=== PATIENT | male | born 1945 | race Caucasian/White ===

== ENCOUNTER 2017-03-23 05:16 | Day surgery (SDC) | payer MEDICARE ==
[2017-03-22 08:42] LABS: HEMATOCRIT 42.9 % (42.0-54.0); HEMOGLOBIN 14.1 g/dL (13.5-17.5); MCH 31.1 pg (26.0-34.0); MCHC 32.9 g/dL (31.0-37.0); MCV 94.5 fL (80.0-100.0); MEAN PLATELET VOLUME 9.3 fL (7.4-10.4); RBC 4.54 10x6/uL (4.20-6.10); RDW 12.5 % (11.5-14.5); WBC 5.5 10x3/uL (4.8-10.8)
[~2017-03-23] VITALS: Ht 185.4 cm; Wt 106.1 kg
--- NOTE | ~2017-03-23 | OP ---
PATIENT NAME: MONIQUE HARPER MEDICAL RECORD: [id number] :46 LOCATION:D.OPS ADMISSION DATE: SURGEON: BEBO WHITE DO DATE OF OPERATION: 03/23/2017 PROCEDURE PERFORMED: Right endoscopic carpal tunnel release. PREOPERATIVE DIAGNOSIS: Right carpal tunnel syndrome. POSTOPERATIVE DIAGNOSIS: Right carpal tunnel syndrome. INDICATIONS: Mr. Harper is a 71-year-old male that presented to the office with complaints of bilateral hand numbness and tingling in the first 3 digits. He has had this for quite some time. They wake him up at night. Also when he drives, he talks on the phone. He goes to sleep and he said he knows he has carpal tunnel and has had testing for it and was just waiting to have it done. He was tired to deal with it and decided to proceed forth with the procedure. SURGEON: Bebo White DO. WELDING PANTOGRAPH MACHINE OPERATOR: Risa Garza, advanced nurse practitioner, RN. DESCRIPTION OF PROCEDURE: The patient was taken to the operative suite after receiving an axillary block in the preop area by anesthesia and placed in supine position, was given general anesthetic. LMA was placed and a tourniquet was placed on the right upper arm. A timeout was performed and all parties in agreement. He received 2 grams of Ancef. The patient was then prepped and draped in sterile fashion and the right upper arm was exsanguinated using an Adán wrap. The tourniquet was then inflated to 250 mmHg. At that time, the incision was made at the proximal wrist crease and the proximal forearm dissected down bluntly with Ragnell. The forearm fascia was encountered and released proximally using a Jess scissors. The carpal tunnel was then entered with the dilators and measured and then the sheath for the camera was placed into the carpal tunnel. Carpal tunnel was entered and the transverse carpal ligament was directly above the sheath. The nerve was not inside, it was below the sheath. The probe was then placed directly onto the transcarpal ligament and probed to find the distal aspect of it. A rasp was then used to clean off the transcarpal ligament and then the knife blade was entered into the sheath and under direct visualization with the camera, the transcarpal ligament was released. Fat had herniated into the site where had been released indicating a full release of the transverse carpal ligament. The camera and sheath were withdrawn as well as the knife and the larger and the Ragnell was placed into the site getting direct visualization of the transcarpal ligament was seen and released. A Jess scissors was then placed in that and spread to ensure there is no other fibrous bands connecting transcarpal ligament and the proximal portion of that site was also released with the scissors. The tourniquet was then deflated at 15 minutes and the wound was irrigated with normal saline and 9 mL of 0.5% Marcaine with epinephrine was injected into the surgical site. Bipolar cautery was used to obtain hemostasis and the wound was closed using 3 inverted interrupted sutures with 5-0 Monocryl. Steri-Strip was placed over the site. Adaptic, 4 x 4s and Tegaderm was placed over the site and the patient was wrapped with a Kerlix and lightly placed Coban over the hand. The patient was awakened in stable condition and taken to PACU in stable condition. Blood loss was minimal. TRANSINT:[id number] Voice Confirmation ID: [id number] DOCUMENT ID: [id number] OPERATIVE REPORT [id number] MONIQUE HARPER MICHAEL D, DO CC: [id number] DICTATION DATE: 03/23/17 0859 INFORMATION TECHNOLOGY ARCHITECT: 03/23/17 1614 [facility] [place] 03/23/[address] [facility] [address] [place] [address]
[~2017-03-23 05:16] MED LIST: CLARITIN10 MG/TAB PO; FLOMAX0.4 MG PO; LIPITOR40 MG PO; LOTREL 5-40 MG1 EACH PO; MULTIPLE VITAMI1 TA1 PO; OMEPRAZOLE20 M1 PO
[2017-03-23 07:22] VITALS: Ht 185.4 cm; Wt 106.1 kg
[2017-03-23] MEDS ORDERED: PERCOCET 5-3251 TAB PO (07:36)
[2017-03-23] MEDS ORDERED: DURICEF500 MG PO (07:36)
== END 2017-03-23 10:25 | disposition home or self-care (01) ==
LOC: D.OPS 05:16 → D.PAN 07:30 → D.OPS 07:30
PROVIDERS: Anesthesiology
DX: G56.01 Carpal tunnel syndrome, right upper limb (principal); Z01.812 Encounter for preprocedural laboratory examination

== ENCOUNTER 2017-04-02 05:07 | Day surgery (SDC) | payer MEDICARE ==
[2017-04-01 09:56] LABS: HEMOGLOBIN 14.2 g/dL (13.5-17.5); MCH 31.1 pg (26.0-34.0); MCV 94.1 fL (80.0-100.0); MEAN PLATELET VOLUME 10.3 fL (7.4-10.4); RBC 4.57 10x6/uL (4.20-6.10); RDW 12.2 % (11.5-14.5); WBC 5.9 10x3/uL (4.8-10.8)
[~2017-04-02] VITALS: Ht 185.4 cm; Wt 102.5 kg
[~2017-04-02 05:07] MED LIST changes: +DURICEF500 MG PO; +PERCOCET 5-3251 TAB PO
[2017-04-02 06:08] VITALS: BP 127/80; Ht 185.4 cm; Wt 102.5 kg
[2017-04-02] MEDS ORDERED: DURICEF500 MG PO (08:16)
--- NOTE | 2017-04-02 10:07 | NUR ---
0945--IV DC'D, PT UP TO DRESS. [facility]OST[facility] HERNANDEZ 1000--DISCHARGE INSTRUCTIONS GIVEN, PT VERBALIZES UNDERSTANDING. PT OFF UNIT VIA WC. [facility]OSTON HERNANDEZ
--- NOTE | 2017-04-02 14:14 | OP ---
PATIENT NAME: MONIQUE HARPER MEDICAL RECORD: [id number] :46 LOCATION:D.OPS ADMISSION DATE: SURGEON: MIRTHA WHITE DO DATE OF OPERATION: 04/02/2017 PROCEDURE PERFORMED: Left endoscopic carpal tunnel release. PREOPERATIVE DIAGNOSIS: Left carpal tunnel syndrome. POSTOPERATIVE DIAGNOSIS: Left carpal tunnel syndrome. INDICATIONS: Mr. Harper is a 71-year-old male that presented to my office with bilateral carpal tunnel syndrome. He is tired of dealing with it and wanted something done surgically. He had an EMG nerve conduction study that indicated the same and we had done the right endoscopic carpal tunnel 10 days ago and he wants the left one done. We scheduled him 10 days apart. He returned for the left one today. SURGEON: Mirtha White DO. DESCRIPTION OF PROCEDURE: The patient was taken to the operative suite, placed in supine position, given anesthetic by anesthesia, an LMA was placed at that time. The left upper extremity was identified. A timeout was performed. The patient was given 2 grams Ancef and everyone was in agreement with the surgery and the site. The left arm was then prepped and draped. Tourniquet was placed above the elbow. Once that was done, the incision was marked out. Esmarch was used to exsanguinate the upper extremity and the tourniquet was inflated to 250 mmHg and the Esmarch was taken off the arm. An incision was made at the proximal wrist crease and Ragnell dissection was used to dissect down to forearm fascia. Forearm fascia was then breached and the median nerve was seen. Forearm fascia was then released under direct visualization using a pickup and scissors proximally and the carpal tunnel distally was viewed. A Ragnell was used to view that. The dilators were then used in the carpal tunnel itself and the sheaths of the Segway device was entered into the carpal tunnel. A camera was then entered into the sheath noting the transverse carpal ligament. Probe was used to probe into the carpal tunnel and a rasp was used to clean off the remainder of the transverse carpal ligament. The knife was then entered in through the slot on the sheath and a release was performed of the transverse carpal ligament. Fat was herniated into the carpal tunnel indicating a complete release and the camera and the knife were withdrawn. The distal part of the excision what was left to the forearm fascia, was released as well going towards distally. The Denny retractor was then placed into the incision and lifted up and the carpal tunnel was viewed visually through loupe magnification and there were no fibers seen compressing or that were left from the transverse carpal ligament. The scissors and the Denny retractor were then removed and 10 mL of 0.5% Marcaine with epinephrine was injected around the surgical site. The tourniquet was deflated and there was minimal blood loss. Pressure was applied over the wound. The incision was then closed with 5-0 Monocryl in inverted interrupted fashion. Steri-Strip, Adaptic, 4 x 4s and Tegaderm were placed over the site. The hand was then wrapped with a Kerlix and loosely wrapped with Coban. The patient was awakened and taken to PACU in stable condition. Blood loss was minimal. TRANSINT:[id number] Voice Confirmation ID: [id number] DOCUMENT ID: [id number] OPERATIVE REPORT [id number] MONIQUE HARPER MICHAEL D, DO at 1414 CC: [id number] DICTATION DATE: 04/02/17823 CHEMICAL ANALYST: 04/02/17 0950 [facility] 04/02/17 [id number] [place] [address]
== END 2017-04-02 10:00 | disposition home or self-care (01) ==
LOC: D.OPS 05:07 → D.PAN 07:30 → D.OPS 10:00
PROVIDERS: Anesthesiology
DX: G56.02 Carpal tunnel syndrome, left upper limb (principal); Z01.812 Encounter for preprocedural laboratory examination